=== PATIENT | female | born 1945 | race Caucasian/White ===

== ENCOUNTER 2017-01-10 20:08 | Emergency (ER) | payer MEDICARE, MEDICAID ==
[2017-01-10 20:09] VITALS: BMI 31.2
[2017-01-10 20:57] VITALS: BP 123/75; PULSE 68; TEMP 98; O2SAT 96
--- NOTE | 2017-01-10 22:14 | C.PDOC ---
History Of Present Illness 71 year old female presents to the ED with complaints of eye discharge and eye irritation after hot grease splashed in right eye while cooking on Saturday. Patient denies any vision changes or any other complaints at this time. last tdap unk. Time Seen by Provider: 01/10/17 21:57 Chief Complaint (Nursing): Eye Problem History Per: Patient History/Exam Limitations: no limitations Onset/Duration Of Symptoms: Days Current Symptoms Are (Timing): Still Present Quality: "Pain" Associated Symptoms: Pain, Swelling, Discharge From Eye Past Medical History Reviewed: Historical Data, Nursing Documentation, Vital Signs Vital Signs: Last Vital Signs Temp 98.0 F 01/10/17 20:53 Pulse 68 01/10/17 20:53 Resp 18 01/10/17 20:53 BP 123/75 01/10/17 20:53 Pulse Ox 96 01/10/17 22:23 - Medical History PMH: Arthritis, Back Problems, Osteoporosis Surgical History: (2) - [facility] Procedures COLONOSCOPY (05/25/15) Family History: States: Unknown Family Hx - Social History Hx Tobacco Use: No Hx Alcohol Use: No Hx Substance Use: No - Immunization History Hx Tetanus Toxoid Vaccination: No Hx Influenza Vaccination: Yes Hx Pneumococcal Vaccination: No Review Of Systems Constitutional: Negative for: Fever, Chills, Sweats Eyes: Positive for: Pain, Conjunctivae Inflammation, Eyelid Inflammation. Negative for: Vision Change Respiratory: Negative for: Cough Gastrointestinal: Negative for: Nausea, Vomiting, Abdominal Pain, Diarrhea Physical Exam - Physical Exam Appears: Non-toxic, No Acute Distress Skin: Warm, Dry Head: Atraumatic, Normacephalic Eye(s): bilateral: PERRL, EOMI, Eyelid Inflammation (swollen eyelid left), Other (0.5 cm scab to lateral left eye with erythema to medial aspect. ), right : Normal Inspection Ear(s): Bilateral: Normal Neck: Normal, Supple Respiratory: Accessory Muscle Use Gastrointestinal/Abdominal: Tenderness Neurological/Psych: Oriented x3 ED Course And Treatment O2 Sat by Pulse Oximetry: 96 Progress Note: Upon vision aquity, vision for right eye 20/40 and left eye 20/25 Medical Decision Making Medical Decision Making: visual acuity done by nurse, 20/40 left, 20/25 right. will d/c with bleph 10, f/ u ophtho Disposition - Disposition Referrals: Jaleel Holley MD [Staff Provider] - Disposition: HOME/ ROUTINE Disposition Time: 22:59 Condition: STABLE Additional Instructions: Use eye drops as directed. Follow up with the eye doctor tomorrow. Prescriptions: Sulfacetamide Sodium [Bleph 10% Eye Drops] 2 drop OS QID #1 bottle Forms: Gen Discharge Inst Vietnamese - Clinical Impression Clinical Impression: Conjunctivitis - Scribe Statement The provider has reviewed the documentation as recorded by the Scribe Lenka Mason All medical record entries made by the Scribe were at my direction and personally dictated by me. I have reviewed the chart and agree that the record accurately reflects my personal performance of the history, physical exam, medical decision making, and the department course for this patient. I have also personally directed, reviewed, and agree with the discharge instructions and disposition.
[2017-01-10] MEDS ORDERED: Bacitracin 500 Units/gm Oint Foilpak UD ONE (22:55)
[2017-01-10 23:09] VITALS: RESP 20
== END 2017-01-10 23:08 | disposition home or self-care (01) ==
LOC: C.ER 20:08
DX: H10.9 Unspecified conjunctivitis (principal)

== ENCOUNTER 2018-07-06 21:21 | Emergency (ER) | payer MEDICAID, MEDICARE ==
[2018-07-06 21:21] VITALS: BMI 31.2
[2018-07-06 23:51] VITALS: BP 135/76; PULSE 75; RESP 20; TEMP 98.2; O2SAT 99
--- NOTE | 2018-07-07 00:44 | C.PDOC ---
History Of Present Illness 73 year old female presents to the ED c/o posterior headache for the past 5 days. Patient reports her pain starts in the lower neck and radiates towards the posterior part of her head. Patient tried Indocin without relief. Patient denies injuries/falls, weakness, numbness, dizziness, visual changes, facial droop, slurred speech. Time Seen by Provider: 07/06/18 22:18 Chief Complaint (Nursing): Headache History Per: Patient History/Exam Limitations: no limitations Onset/Duration Of Symptoms: Days (5) Current Symptoms Are (Timing): Still Present Severity: Mild Quality: "Pain" Associated Symptoms: denies: Photophobia, Blurred Vision, Nausea, Vomiting, Extremity Weakness Additional History Per: Patient Past Medical History Reviewed: Historical Data, Nursing Documentation, Vital Signs Vital Signs: Last Vital Signs Temp 98.2 F 07/06/18 23:43 Pulse 75 07/06/18 23:43 Resp 20 07/06/18 23:43 BP 135/76 07/06/18 23:43 Pulse Ox 99 07/06/18 23:43 - Medical History PMH: Alzheimer's Disease, Arthritis, Back Problems, Osteoporosis Surgical History: (2) - [facility] Procedures COLONOSCOPY (05/25/15) Family History: States: No Known Family Hx - Social History Hx Tobacco Use: No Hx Alcohol Use: No Hx Substance Use: No - Immunization History Hx Tetanus Toxoid Vaccination: No Hx Influenza Vaccination: Yes Hx Pneumococcal Vaccination: No Review Of Systems Constitutional: Negative for: Fever, Chills Eyes: Negative for: Vision Change Cardiovascular: Negative for: Chest Pain Respiratory: Negative for: Shortness of Breath Gastrointestinal: Negative for: Nausea, Vomiting Musculoskeletal: Positive for: Neck Pain Skin: Negative for: Rash Neurological: Positive for: Headache. Negative for: Weakness, Numbness, Dizziness Physical Exam - Physical Exam Appears: Well, Non-toxic, No Acute Distress Skin: Normal Color, Warm, Dry Head: Normacephalic Eye(s): bilateral: Normal Inspection, PERRL, EOMI Oral Mucosa: Moist Neck: Normal, Normal ROM, No Midline Cervical Tenderness, No Paracervical Tenderness, No Step Off Deformity, Supple Cardiovascular: Rhythm Regular Respiratory: Normal Breath Sounds, No Rales, No Rhonchi, No Wheezing Gastrointestinal/Abdominal: Normal Exam, Bowel Sounds, Soft, No Tenderness Extremity: Normal ROM, No Tenderness, No Swelling Neurological/Psych: Oriented x3, Normal Speech, Normal Cognition, Normal Cranial Nerves, No Cerebellar Signs, Normal Motor, Normal Sensation Gait: Steady ED Course And Treatment O2 Sat by Pulse Oximetry: 99 (on RA) Pulse Ox Interpretation: Normal - CT Scan/US CT head Other Rad Studies (CT/US): Read By Radiologist, Radiology Report Reviewed CT/US Interpretation: EXAM: CT Head Without IV contrast. CLINICAL HISTORY: Persistent headaches. TECHNIQUE: Axial computed tomography images of the he ad/brain without intravenous contrast. 1057 mGy-cm. COMPARISON: None provided. FINDINGS: BRAIN. Chronic periventricular and subcortical microvascular disease is seen. VENTRICLES: There is generalized parenchymal atrophy noted as demonstrated by symmetrical dilatation of ventricles and sulci. ORBITS: The orbits are unremarkable. SINUSES AND MASTOIDS: The paranasal sinuses and mastoid air cells are clear. BONES: No fracture. MISCELLANEOUS: No acute intracranial pathology. IMPRESSION: 1. There is generalized parenchymal atrophy noted as demonstrated by symmetrical dilatation of ventricles and sulci. 2. Chronic periventricular and subcortical microvascular disease is seen. 3. No acute intracranial pathology. . Electronically signed on Jul 07, 2018 12:29:44 AM EDT by: Norman Bro M.D., OLIVIA Certified By ABR & CBCCT. Fellowship Trained MRI and CT Specialist Progress Note: CT head ordered and reviewed. Patient given Toradol, Flexeril. Reevaluation Time: 00:40 Reassessment Condition: Improved (Patient reassessed, is resting comfortably and pain has resolved. CT head (-) for acute findings. Patient is comfortable being discharged home, was instructed to follow up with PMD/clinic in 1-2 days. She understands she should return to ED if symptoms worsen.) Disposition Counseled Patient/Family Regarding: Diagnosis, Need For Followup, Rx Given - Disposition Referrals: Adam Alvarado [Medical Doctor] - Disposition: HOME/ ROUTINE Disposition Time: 00:40 Condition: STABLE Prescriptions: RX: Cyclobenzaprine [Flexeril] 10 mg PO BID PRN #15 tab PRN Reason: Muscle Spasm RX: Naproxen 375 mg PO BID PRN #20 tablet PRN Reason: pain Instructions: Tension Headache (DC) Forms: [employer] (Belarusian) Print Language: IRISH - Clinical Impression Clinical Impression: Headache - Scribe Statement The provider has reviewed the documentation as recorded by the Scribe Kurt Rader All medical record entries made by the Scribe were at my direction and person ally dictated by me. I have reviewed the chart and agree that the record accurately reflects my personal performance of the history, physical exam, medical decision making, and the department course for this patient. I have also personally directed, reviewed, and agree with the discharge instructions and disposition.
--- NOTE | 2018-07-07 10:34 | CT ---
Date of service: 07/06/2018 PROCEDURE: CT HEAD WITHOUT CONTRAST. HISTORY: PERSISTENT HEADACHE COMPARISON: None available. TECHNIQUE: Axial computed tomography images were obtained through the head/brain without intravenous contrast. Radiation dose: Total exam DLP = 1057.68 mGy-cm. This CT exam was performed using one or more of the following dose reduction techniques: Automated exposure control, adjustment of the mA and/or kV according to patient size, and/or use of iterative reconstruction technique. FINDINGS: HEMORRHAGE: No acute parenchymal, subarachnoid or extra-axial the hemorrhage. BRAIN: Mild chronic periventricular white matter ischemic changes seen extending peripherally into the deep and to a lesser degree subcortical white matter both cerebral hemispheres.. Moderate to significant central volume loss evidenced by disproportionate enlargement of the ventricles compared sulci. No obvious parenchymal nor extra-axial mass or collection seen on this noncontrast exam Vascular calcifications both carotid siphons VENTRICLES: No obstructive hydrocephalus. CALVARIUM: Calvarium intact. PARANASAL SINUSES: Mild mucosal thickening right maxillary antrum. MASTOID AIR CELLS: Unremarkable as visualized. No inflammatory changes. OTHER FINDINGS: None. IMPRESSION: Mild chronic periventricular white matter ischemic changes seen extending peripherally into the deep and to a lesser degree subcortical white matter both cerebral hemispheres.. Moderate to significant central volume loss evidenced by disproportionate enlargement of the ventricles compared sulci.
== END 2018-07-07 00:55 | disposition home or self-care (01) ==
LOC: C.ER 21:21
DX: R51 Headache (principal)
CPT/HCPCS: 70450; 96374; 99284; J1885

== ENCOUNTER 2018-11-24 11:37 | Emergency (ER) | payer MEDICARE, MEDICAID ==
[2018-11-24 11:38] VITALS: BMI 31.2
[2018-11-24 12:05] VITALS: RESP 20
[2018-11-24 12:23] LABS: SQUAMOUS EPITHIAL 3 /hpf (0-5); URINE BACTERIA RARE (<OCC); URINE BILIRUBIN NEGATIVE (NEGATIVE); URINE BLOOD NEGATIVE (NEGATIVE); URINE CLARITY Hazy (Clear); URINE COLOR Yellow (YELLOW); URINE GLUCOSE (UA) NORMAL (Normal); URINE LEUKOCYTE ESTERASE TRACE Leu/uL (Negative); URINE PROTEIN NEGATIVE (NEGATIVE)
[2018-11-24 14:00] VITALS: BP 119/69; PULSE 61; TEMP 97.9; O2SAT 100
--- NOTE | 2018-11-24 18:56 | C.PDOC ---
History Of Present Illness 73 y/o female comes in to ED complaining of persistent lower back pain and vaginal fullness that has been persistent for the past 2 weeks. Patient denies dysuria, vaginal discharge or bleeding, hematuria, or other symptoms. Patient is currently on antibiotics for UTI. She was seen by a urologist and ultrasound was completed, but patient did not follow up. Chief Complaint (Nursing): Female Genitourinary History Per: Patient History/Exam Limitations: no limitations Onset/Duration Of Symptoms: Days Current Symptoms Are (Timing): Still Present Past Medical History Reviewed: Historical Data, Nursing Documentation, Vital Signs Vital Signs: Last Vital Signs Temp 97.9 F 11/24/18 13:59 Pulse 61 11/24/18 13:59 Resp 20 11/24/18 13:59 BP 119/69 11/24/18 13:59 Pulse Ox 100 11/24/18 13:59 - Medical History PMH: Alzheimer's Disease, Arthritis, Back Problems, Osteoporosis Denies: Chronic Kidney Disease Surgical History: (2) - [facility] Procedures COLONOSCOPY (05/25/15) Family History: States: No Known Family Hx - Social History Hx Tobacco Use: No Hx Alcohol Use: No Hx Substance Use: No - Immunization History Hx Tetanus Toxoid Vaccination: No Hx Influenza Vaccination: Yes Hx Pneumococcal Vaccination: No Review Of Systems Except As Marked, All Systems Reviewed And Found Negative. Constitutional: Negative for: Fever, Chills Respiratory: Negative for: Shortness of Breath Gastrointestinal: Negative for: Nausea, Vomiting Genitourinary: Positive for: Other (Vaginal "fullness"). Negative for: Dysuria, Hematuria, Vaginal Discharge, Vaginal Bleeding Musculoskeletal: Positive for: Back Pain (lower back) Physical Exam - Physical Exam Appears: Non-toxic, No Acute Distress Skin: Warm, Dry Head: Atraumatic, Normacephalic Eye(s): bilateral: Normal Inspection Oral Mucosa: Moist Neck: Supple Cardiovascular: Rhythm Regular, No Murmur Respiratory: Normal Breath Sounds, No Rales, No Rhonchi, No Wheezing Gastrointestinal/Abdominal: Soft, No Tenderness Extremity: Bilateral: Atraumatic, Normal Color And Temperature, Normal ROM Neurological/Psych: Oriented x3, Normal Speech ED Course And Treatment - Laboratory Results Lab Results: Urine Color Yellow (YELLOW) 11/24/18 12:15 Urine Clarity Hazy (Clear) 11/24/18 12:15 Urine pH 5.0 (5.0-8.0) 11/24/18 12:15 Ur Specific [place] 1.017 (1.003-1.030) 11/24/18 12:15 Urine Protein Negative mg/dL (NEGATIVE) 11/24/18 12:15 Urine Glucose (UA) Normal mg/dL (Normal) 11/24/18 12:15 Urine Ketones Negative mg/dL (NEGATIVE) 11/24/18 12:15 Urine Blood Negative (NEGATIVE) 11/24/18 12:15 Urine Nitrate Negative (NEGATIVE) 11/24/18 12:15 Urine Bilirubin Negative (NEGATIVE) 11/24/18 12:15 Urine Urobilinogen 2.0 mg/dL (0.2-1.0) H 11/24/18 12:15 Ur Leukocyte Esterase Trace Mario/uL (Negative) 11/24/18 12:15 Urine WBC (Auto) 6 /hpf (0-5) H 11/24/18 12:15 Urine RBC (Auto) 1 /hpf (0-3) 11/24/18 12:15 Ur Squamous Epith Cells 3 /hpf (0-5) 11/24/18 12:15 Urine Bacteria Rare (<OCC) 11/24/18 12:15 O2 Sat by Pulse Oximetry: 100 (RA) Pulse Ox Interpretation: Normal Medical Decision Making Medical Decision Making: Plan: --Urinalysis Disposition - Disposition Referrals: Fabiana Massey, [Non-Staff] - Disposition: HOME/ ROUTINE Disposition Time: 13:45 Condition: GOOD Additional Instructions: ZULEIKA LAMBERT, thank you for letting us take care of you today. The emergency medical care you received today was directed at your acute symptoms. If you were prescribed any medication, please fill it and take as directed. It may take several days for your symptoms to resolve. Return to the Emergency Department if your symptoms worsen, do not improve, or if you have any other problems. Please contact your doctor or call one of the physicians/clinics you have been referred to that are listed on the Patient Visit Information form that is included in your discharge packet. Bring any paperwork you were given at discharge with you along with any medications you are taking to your follow up visit. Our treatment cannot replace ongoing medical care by a primary care provider outside of the emergency department. Thank you for allowing the [facility] team to be part of your care today. Follow up with your urologist (specialist) in 2-3 days for re-evaluation and further management. Prescriptions: Ibuprofen [Motrin] 600 mg PO Q6 PRN #20 tab PRN Reason: Pain, Moderate (4-7) Instructions: Pelvic Floor Dysfunction (DC) Forms: [employer] (Sudanese) - Clinical Impression Clinical Impression: UTI (urinary tract infection) - Scribe Statement The provider has reviewed the documentation as recorded by the Katrinaiblucía Hummel Provider Attestation: All medical record entries made by the Katrinaiblucía were at my direction and personally dictated by me. I have reviewed the chart and agree that the record accurately reflects my personal performance of the history, physical exam, medical decision making, and the department course for this patient. I have also personally directed, reviewed, and agree with the discharge instructions and disposition.
== END 2018-11-24 14:02 | disposition home or self-care (01) ==
LOC: C.ER 11:37
DX: N39.0 Urinary tract infection, site not specified (principal)

== ENCOUNTER 2019-01-15 12:14 | Emergency (ER) | payer MEDICARE, MEDICAID ==
[2019-01-15 12:14] VITALS: BMI 31.2
[2019-01-15 12:32] VITALS: TEMP 98.5
[2019-01-15 13:26] LABS: BASO % 0.7 % (0.0-2.0); EOS # 0.1 K/uL (0.0-0.7); EOS % 0.9 % (0.0-4.0); HEMOGLOBIN 12.2 g/dL (11.0-16.0); LYMPH # 1.2 K/uL (1.0-4.3); LYMPH % 22.5 % (20.0-40.0); MEAN CELL VOLUME 93.4 fL (81.0-99.0); MEAN CORPUSCULAR HEMOGLOBIN 32.2 pg (27.0-31.0); MEAN CORPUSCULAR HGB CONC 34.5 g/dL (33.0-37.0); MEAN PLATELET VOLUME 8.5 fL (7.2-11.7); MONO # 0.4 K/uL (0.0-0.8); MONO % 7.3 % (0.0-10.0); NEUT # 3.8 K/uL (1.8-7.0); NEUT % 68.6 % (50.0-75.0); RBC 3.78 Mil/uL (3.80-5.20); RED CELL DISTRIBUTION WIDTH 13.3 % (11.5-14.5); WHITE BLOOD COUNT 5.5 K/uL (4.8-10.8)
[2019-01-15 13:47] LABS: ALB/GLOB RATIO 1.4 (1.0-2.1); ALBUMIN 3.8 g/dL (3.5-5.0); ALT/SGPT 12 U/L (9-52); AST/SGOT 35 U/L (14-36); BLOOD UREA NITROGEN 18 mg/dL (7-17); CALCIUM 9.3 mg/dl (8.6-10.4); GFR NON-AFRICAN AMERICAN > 60
--- NOTE | 2019-01-15 13:57 | C.PDOC ---
History Of Present Illness 73 y/o female with a questionable hx of anxiety presents to the ED complaining of chest pain that began this morning. She describes the pain as someone sticking a needle in her chest. Associated with left arm pain. Patient reports her is sick, and she has been feeling anxious about his health lately. She denies any SOB, palpitations, cough, or fever. Time Seen by Provider: 01/15/19 12:51 Chief Complaint (Nursing): Chest Pain History Per: Patient History/Exam Limitations: no limitations Onset/Duration Of Symptoms: Hrs Current Symptoms Are (Timing): Still Present Quality: Sharp Alleviating Factors: None Past Medical History Reviewed: Historical Data, Nursing Documentation, Vital Signs Vital Signs: Last Vital Signs Temp 98.5 F 01/15/19 12:26 Pulse 57 L 01/15/19 12:30 Resp 20 01/15/19 12:26 BP 123/64 01/15/19 12:30 Pulse Ox 94 L 01/15/19 12:26 - Medical History PMH: Alzheimer's Disease, Arthritis, Back Problems, Hypercholesterolemia, Osteoporosis Denies: Chronic Kidney Disease Surgical History: (2) - [facility] Procedures COLONOSCOPY (05/25/15) Family History: States: No Known Family Hx - Social History Hx Tobacco Use: No Hx Alcohol Use: No Hx Substance Use: No - Immunization History Hx Tetanus Toxoid Vaccination: No Hx Influenza Vaccination: Yes Hx Pneumococcal Vaccination: No Review Of Systems Except As Marked, All Systems Reviewed And Found Negative. Constitutional: Negative for: Fever, Chills Cardiovascular: Positive for: Chest Pain. Negative for: Palpitations Respiratory: Negative for: Cough, Shortness of Breath Gastrointestinal: Negative for: Nausea, Vomiting, Diarrhea Musculoskeletal: Positive for: Arm Pain Neurological: Negative for: Weakness, Numbness Physical Exam - Physical Exam Appears: Non-toxic, No Acute Distress Skin: Normal Color, Warm, Dry Head: Atraumatic, Normacephalic Eye(s): bilateral: Normal Inspection, PERRL, EOMI Oral Mucosa: Moist Neck: Normal ROM Chest: Symmetrical, No Tenderness Cardiovascular: Rhythm Regular, No Murmur, No JVD Respiratory: Normal Breath Sounds, No Rales, No Rhonchi, No Wheezing Gastrointestinal/Abdominal: Soft, No Tenderness, No Distention Extremity: Bilateral: Atraumatic, Normal Color And Temperature, Other (no pitting edema) Neurological/Psych: Oriented x3, Normal Speech, Normal Cranial Nerves ED Course And Treatment - Laboratory Results Result Diagrams: 01/15/19 13:22 01/15/19 13:22 Lab Results: Total Bilirubin 0.9 mg/dL (0.2-1.3) 01/15/19 13:22 AST 35 U/L (14-36) 01/15/19 13:22 ALT 12 U/L (9-52) 01/15/19 13:22 Alkaline Phosphatase 69 U/L (38-126) 01/15/19 13:22 Total Protein 6.4 g/dL (6.3-8.3) 01/15/19 13:22 Albumin 3.8 g/dL (3.5-5.0) 01/15/19 13:22 Globulin 2.6 gm/dL (2.2-3.9) 01/15/19 13:22 Albumin/Globulin Ratio 1.4 (1.0-2.1) 01/15/19 13:22 O2 Sat by Pulse Oximetry: 94 (on RA) Pulse Ox Interpretation: Abnormal - Other Rad CXR X-Ray: Read By Radiologist Interpretation: Accession No. : [id number]. Patient Name / ID : PETRA TO / [id number]. Exam Date : 01/15/2019 13:32:32 ( Approved ). Study Comment : Sex / Age : F / 73Y. Creator : Zuleyka Garvin V. Dictator : Zuleyka Garvin V. Medical Collections : Turret Lathe Operator : Zuleyka Casey V. Approver2 : Report Date : 01/15/2019 14:01:29. My Comment : . Date of service: 01/15/2019. PROCEDURE: CHEST RADIOGRAPH, 1 VIEW. HISTORY: chest pain. COMPARISON: None available. FINDINGS: LUNGS: Clear. PLEURA: No pneumothorax or pleural fluid seen. CARDIOVASCULAR: No aortic atherosclerotic calcification present. Normal. OSSEOUS STRUCTURES: No significant abnormalities. VISUALIZED UPPER ABDOMEN: Normal. OTHER FINDINGS: None. IMPRESSION: No active disease. Medical Decision Making Medical Decision Making: Impression: Anxiety, Chest pain, r/o GA Plan: * Labs * EKG * CXR * 30 mg IV Toradol given for pain control * Reassess Labs and imaging reviewed. No acute abnormalities. 14:45 On re-evaluation patient reports improvement in symptoms. VSS. Patient states she would like to go home and be with her family. Plan is to discharge patient home with Motrin 600mg prescription. Disposition Counseled Patient/Family Regarding: Diagnosis, Need For Followup, Rx Given - Disposition Referrals: [facility] [Outside] [facility] [Outside] [facility] [place] [Outside] Disposition: HOME/ ROUTINE Disposition Time: 14:49 Condition: IMPROVED Additional Instructions: Follow up with your pcp or medicine clinic in a few days and take motrin for pain as directed. Prescriptions: Ibuprofen [Motrin] 600 mg PO Q6 #12 tab Instructions: Chest Pain, Anxiety, Adult (DC) Forms: [employer] (Slovenian) - POA Core Measure Indicators: Chest Pain - Clinical Impression Clinical Impression: Chest pain, Anxiety - Scribe Statement The provider has reviewed the documentation as recorded by the Sky Casas Provider Attestation: All medical record entries made by the Katrinaiblucía were at my direction and personally dictated by me. I have reviewed the chart and agree that the record accurately reflects my personal performance of the history, physical exam, medical decision making, and the department course for this patient. I have also personally directed, reviewed, and agree with the discharge instructions and disposition.
--- NOTE | 2019-01-15 14:05 | RAD ---
Date of service: 01/15/2019 PROCEDURE: CHEST RADIOGRAPH, 1 VIEW HISTORY: chest pain COMPARISON: None available. FINDINGS: LUNGS: Clear. PLEURA: No pneumothorax or pleural fluid seen. CARDIOVASCULAR: No aortic atherosclerotic calcification present. Normal. OSSEOUS STRUCTURES: No significant abnormalities. VISUALIZED UPPER ABDOMEN: Normal. OTHER FINDINGS: None. IMPRESSION: No active disease.
[2019-01-15 14:39] VITALS: BP 122/74; PULSE 54; RESP 18
[2019-01-15 14:56] VITALS: O2SAT 94
--- NOTE | 2019-01-16 23:38 | CARD ---
APPROVED REPORT Date of service: 01/15/2019 EKG Measurement Heart [id number] <Conclusion> Sinus bradycardia Otherwise normal ECG
== END 2019-01-15 15:16 | disposition home or self-care (01) ==
LOC: C.ER 12:14
DX: F41.9 Anxiety disorder, unspecified (principal); R07.9 Chest pain, unspecified
CPT/HCPCS: 71045; 80053; 84484; 85025; 93005; 96374; 99285; J1885